=== PATIENT | female | born 1955 | race Caucasian/White ===

== ENCOUNTER 2020-03-08 14:05 | Emergency (ER) | payer MEDICAID, MEDICARE ==
[~2020-03-08] VITALS: Ht 157.5 cm; Wt 60.0 kg
[~2020-03-08 14:05] MED LIST: ASPI-1497 PO; BENAZEPRIL PO; DIABETIC MEDS; HTN MEDS; LORAZEPAM PO; PAROXETINE PO; PROGLITAZONE PO
[2020-03-08] MEDS ORDERED: MORPHINE SULFATE 4 MG/ML CPJ (NOT FOR IM USE) IV STA (15:41)
[2020-03-08] MEDS ORDERED: ONDANSETRON HCL 4MG/2ML INJ IV STA (15:41)
[2020-03-08 15:44] LABS: BASOPHILS % 0.6 % (0.0-2.0); EOSINOPHILS % 0.6 % (0.0-5.0); HEMATOCRIT. 36.4 % (36.0-48.0); HEMOGLOBIN. 12.5 g/dL (12.0-16.0); LYMPHOCYTES % 15.7 % (20.0-50.0); MEAN CORPUSCULAR HEMOGLOBIN 31.7 pg (28.0-32.0); MEAN CORPUSCULAR VOLUME 92.3 fL (81.0-99.0); MEAN PLATELET VOLUME 7.6 fl (7.4-10.4); MONOCYTES % 4.9 % (2.0-8.0); NEUTROPHILS % 78.2 % (40.0-76.0); PLATELET 321 x1000/uL (130-400); RED BLOOD CELL COUNT 3.94 mill/uL (4.2-5.4); RED CELL DISTRIBUTION WIDTH 13.9 % (11.6-14.6)
[2020-03-08 15:49] LABS: CHLORIDE 109 mEq/L (98-107)
[2020-03-08 16:30] VITALS: BP 126/52
== END 2020-03-08 19:28 | disposition home or self-care (01) ==
LOC: ER 14:05
DX: S62.501A Fracture of unspecified phalanx of right thumb, initial encounter for closed fracture (principal); V49.59XA Passenger injured in collision with other motor vehicles in traffic accident, initial encounter; R07.89 Other chest pain; Y93.89 Activity, other specified; Y92.89 Other specified places as the place of occurrence of the external cause; Y99.8 Other external cause status; E11.9 Type 2 diabetes mellitus without complications; E78.00 Pure hypercholesterolemia, unspecified; I10 Essential (primary) hypertension; Z79.82 Long term (current) use of aspirin; Z79.899 Other long term (current) drug therapy
CPT/HCPCS: 29125; 36415; 71045; 73120; 80053; 83880; 84484; 85025; 93005; 96374; 96375; 99285; J2270; J2405